=== PATIENT | male | born 1965 | race Caucasian/White ===

== ENCOUNTER 2023-07-30 17:13 | Inpatient (IN) | payer OTHER ==
[2023-07-30 18:07] VITALS: BMI 29.0
[2023-07-30] MEDS ORDERED: ACETAMINOPHEN 325 MG TABLET (FP) PO PRN (19:25)
[2023-07-30] MEDS ORDERED: LOPERAMIDE HCL 2 MG CAPSULE PO PRN (19:25)
[2023-07-30] MEDS ORDERED: BISMUTH SUBSALICYLATE 524 MG/30 ML PO PRN (19:25)
[2023-07-30] MEDS ORDERED: MAGNESIUM HYDROX 2400MG/30ML ORAL SUSPENSION 30 ML CUP PO PRN (19:25)
[2023-07-30] MEDS ORDERED: NALOXONE HCL (KLOXXADO) 8 MG SPRAY NS PRN (19:25)
[2023-07-30] MEDS ORDERED: DICYCLOMINE HCL 10 MG CAPSULE PO PRN (19:25)
[2023-07-30] MEDS ORDERED: MAG HYDROX/AL HYDROX/SIMETH 30 ML UNIT-DOSE CUP PO PRN (19:25)
[2023-07-30] MEDS ORDERED: NALOXONE HCL 0.4 MG/ML VIAL IM PRN (19:25)
[2023-07-30] MEDS ORDERED: guaiFENesin 600 MG TABLET.ER (FP) PO PRN (19:25)
[2023-07-30] MEDS ORDERED: IBUPROFEN 400 MG TABLET (FP) PO PRN (19:25)
[2023-07-30] MEDS ORDERED: BENZOCAINE/MENTHOL (CHLORASEPTIC ) LOZENGE MM PRN (19:25)
[2023-07-30] MEDS ORDERED: NICOTINE POLACRILEX 2 MG LOZENGE BC PRN (19:25)
[2023-07-30] MEDS ORDERED: IBUPROFEN 600 MG TABLET (FP) PO PRN (19:25)
[2023-07-30] MEDS ORDERED: POLYETHYLENE GLYCOL (HEALTHYLAX) 3350 17 GM PACKET PO PRN (19:25)
[2023-07-30] MEDS ORDERED: BENZONATATE 200 MG CAPSULE PO PRN (19:25)
[2023-07-30] MEDS ORDERED: P-EPHED 60MG/TRIPROLIDI 2.5MG TABLET PO PRN (19:25)
[2023-07-30] MEDS: MELATONIN 5 MG TABLETS PO SCH (22:45)
[2023-07-30] MEDS: THIAMINE HCL 100 MG TABLET (FP) PO SCH (22:45)
[2023-07-31] MEDS: hydrOXYzine PAMOATE 25 MG CAPSULE (FP) PO PRN ×2 (05:19→22:41)
[2023-07-31] MEDS: METHOCARBAMOL 500 MG TABLET PO PRN ×2 (05:19→22:41)
[2023-07-31 08:30] LABS: POTASSIUM 4.5 mmol/L (3.5-5.1)
[2023-07-31 08:34] LABS: HEMATOCRIT 36.5 % (35.4-49); HEMOGLOBIN 12.4 GM/dL (11.7-16.9); MCH 31.7 pg (25.7-33.7); MEAN CELL VOLUME 93.2 fl (80-96); MEAN PLT VOLUME 9.4 fl (7.5-11.1); PLATELET COUNT 173 10^3/uL (134-434); RBC 3.92 M/mm3 (4.00-5.60); RDW 13.3 % (11.9-15.9); WHITE BLOOD COUNT 6.7 K/mm3 (4.0-10.0)
[2023-07-31 08:40] LABS: ALBUMIN 3.2 g/dl (3.4-5.0); BLOOD UREA NITROGEN 13.5 mg/dL (7-18); CALCIUM 8.8 mg/dL (8.5-10.1)
[2023-07-31 08:43] LABS: CREATININE 1.2 mg/dL (0.55-1.3)
[2023-07-31 08:45] LABS: TOT PROT 6.8 g/dl (6.4-8.2)
[2023-07-31 08:47] LABS: BILIRUBIN,TOTAL 0.5 mg/dL (0.2-1)
[2023-07-31] MEDS: PRENATAL VITAMINS W/ FOLIC ACID TABLET (FP) PO SCH (10:25)
[2023-07-31] MEDS ORDERED: methaDONE HCL 10 MG TABLET (FOR DETOX USE ONLY) PO ONE (10:59)
[2023-07-31] MEDS ORDERED: FLU VACCINE (FLULAVAL) PF 60 MCG/0.5 ML SYRINGE 2023-2024 IM ONE (12:00)
[2023-07-31 13:08] LABS: HIV INTERPRETATION NEGATIVE (NEGATIVE)
[2023-07-31] MEDS: ONDANSETRON *ODT* 4 MG TABLET SL PRN (20:49)
[2023-07-31] MEDS: cloNIDine HCL 0.1 MG TABLET PO PRN (20:49)
[2023-07-31] MEDS: THIAMINE HCL 100 MG TABLET (FP) PO SCH (22:41)
[2023-07-31] MEDS: MELATONIN 5 MG TABLETS PO SCH (22:41)
[2023-07-31] MEDS ORDERED: TRIMETHOBENZAMIDE HCL 200MG/2ML INJ IM ONE (23:16)
[2023-08-01] MEDS: ONDANSETRON *ODT* 4 MG TABLET SL PRN ×2 (08:56→18:17)
[2023-08-01] MEDS ORDERED: TRIMETHOBENZAMIDE HCL 200MG/2ML INJ IM PRN (09:15)
[2023-08-01] MEDS: PRENATAL VITAMINS W/ FOLIC ACID TABLET (FP) PO SCH (10:30)
[2023-08-01] MEDS: diazePAM 5 MG TABLET PO PRN ×2 (19:17→23:28)
[2023-08-01] MEDS: THIAMINE HCL 100 MG TABLET (FP) PO SCH (22:29)
[2023-08-01] MEDS: MELATONIN 5 MG TABLETS PO SCH (22:29)
[2023-08-01] MEDS: METHOCARBAMOL 500 MG TABLET PO PRN (22:30)
[2023-08-01] MEDS: cloNIDine HCL 0.1 MG TABLET PO PRN (22:30)
[2023-08-02] MEDS ORDERED: methaDONE HCL 10 MG TABLET (FOR DETOX USE ONLY) PO ONE (10:00)
[2023-08-02] MEDS: PRENATAL VITAMINS W/ FOLIC ACID TABLET (FP) PO SCH (10:34)
[2023-08-02] MEDS: diazePAM 5 MG TABLET PO PRN ×2 (14:29→22:21)
[2023-08-02] MEDS: THIAMINE HCL 100 MG TABLET (FP) PO SCH (22:20)
[2023-08-02] MEDS: METHOCARBAMOL 500 MG TABLET PO PRN (22:21)
[2023-08-02] MEDS: MELATONIN 5 MG TABLETS PO SCH (22:21)
[2023-08-03] MEDS: PRENATAL VITAMINS W/ FOLIC ACID TABLET (FP) PO SCH (10:31)
[2023-08-03] MEDS: METHOCARBAMOL 500 MG TABLET PO PRN (10:31)
[2023-08-03] MEDS: THIAMINE HCL 100 MG TABLET (FP) PO SCH (23:02)
[2023-08-03] MEDS: MELATONIN 5 MG TABLETS PO SCH (23:02)
[2023-08-04] MEDS ORDERED: methaDONE HCL 10 MG TABLET (FOR DETOX USE ONLY) PO ONE (10:00)
[2023-08-04] MEDS: PRENATAL VITAMINS W/ FOLIC ACID TABLET (FP) PO SCH (10:33)
[2023-08-04] MEDS: THIAMINE HCL 100 MG TABLET (FP) PO SCH (23:05)
[2023-08-04] MEDS: MELATONIN 5 MG TABLETS PO SCH (23:05)
[2023-08-05 09:54] VITALS: BP 118/75; PULSE 84; RESP 17; TEMP 97.8
== END 2023-08-05 10:25 | disposition other institution (70) | DRG 773 ==
LOC: YASAS 17:13 → Y3N 20:04
PROVIDERS: ADMIT Allergy & Immunology; ATTEND Surgery
PROC: HZ2ZZZZ Detoxification Services for Substance Abuse Treatment (ICD-10-PCS; principal; 2023-07-30)
DX: F11.23 Opioid dependence with withdrawal (principal); F13.120 Sedative, hypnotic or anxiolytic abuse with intoxication, uncomplicated; F17.210 Nicotine dependence, cigarettes, uncomplicated; R26.89 Other abnormalities of gait and mobility; Z86.19 Personal history of other infectious and parasitic diseases
CPT/HCPCS: 0241U-QW; 36415; 80053; 85027; 86780; 87389; 87635; 93005; 93010; Q0162

== ENCOUNTER 2025-04-07 12:08 | Inpatient (IN) | payer OTHER ==
[2025-04-07 12:23] VITALS: BMI 25.0
[2025-04-07] MEDS ORDERED: IBUPROFEN 400 MG TABLET (FP) PO PRN (12:37)
[2025-04-07] MEDS ORDERED: LOPERAMIDE HCL 2 MG CAPSULE PO PRN (12:37)
[2025-04-07] MEDS ORDERED: DICYCLOMINE HCL 10 MG CAPSULE PO PRN (12:37)
[2025-04-07] MEDS ORDERED: ACETAMINOPHEN 325 MG TABLET (FP) PO PRN (12:37)
[2025-04-07] MEDS ORDERED: POLYETHYLENE GLYCOL (HEALTHYLAX) 3350 17 GM PACKET PO PRN (12:37)
[2025-04-07] MEDS ORDERED: NALOXONE (NARCAN) HCL 4 MG/0.1 ML SPRAY NS PRN (12:37)
[2025-04-07] MEDS ORDERED: MAGNESIUM HYDROX 2400MG/30ML ORAL SUSPENSION 30 ML CUP PO PRN (12:37)
[2025-04-07] MEDS ORDERED: BISMUTH SUBSALICYLATE 524 MG/30 ML PO PRN (12:37)
[2025-04-07] MEDS ORDERED: MAG HYDROX/AL HYDROX/SIMETH 30 ML UNIT-DOSE CUP PO PRN (12:37)
[2025-04-07] MEDS ORDERED: BENZOCAINE/MENTHOL (CHLORASEPTIC ) LOZENGE MM PRN (12:37)
[2025-04-07] MEDS ORDERED: IBUPROFEN 600 MG TABLET (FP) PO PRN (12:37)
[2025-04-07] MEDS ORDERED: guaiFENesin 600 MG TABLET.ER (FP) PO PRN (12:37)
[2025-04-07] MEDS ORDERED: METHOCARBAMOL 500 MG TABLET PO PRN (12:37)
[2025-04-07] MEDS ORDERED: NICOTINE POLACRILEX 2 MG GUM BUC PRN (12:37)
[2025-04-07] MEDS ORDERED: BENZONATATE 200 MG CAPSULE PO PRN (12:37)
[2025-04-07] MEDS ORDERED: hydrOXYzine PAMOATE 25 MG CAPSULE (FP) PO PRN (12:37)
[2025-04-07] MEDS ORDERED: ALBUTEROL SO4 HFA INHALER IH PRN (16:15)
[2025-04-07] MEDS: THIAMINE 100 MG TABLET PO SCH (22:35)
[2025-04-07] MEDS: MELATONIN 5 MG TABLETS PO SCH (22:35)
[2025-04-08] MEDS: NICOTINE 14 MG/24 HOURS TOPICAL PATCH TD SCH (09:37)
[2025-04-08] MEDS: PRENATAL VITAMINS W/ FOLIC ACID TABLET (FP) PO SCH (09:37)
[2025-04-08] MEDS: DOCUSATE SODIUM 100 MG CAPSULE (FP) PO SCH (15:57)
[2025-04-08] MEDS: ONDANSETRON *ODT* 4 MG TABLET SL PRN (20:41)
[2025-04-08] MEDS: MELATONIN 5 MG TABLETS PO SCH (22:42)
[2025-04-09 10:04] VITALS: BP 120/71; PULSE 62; RESP 16; TEMP 98.9
[2025-04-09 11:10] LABS: MCHC 32.9 g/dl (32.3-36.5); MEAN CELL VOLUME 93.0 fl (79.0-92.2); MEAN PLT VOLUME 11.3 fl (9.4-12.4); RDW 12.4 % (12.2-16.1)
== END 2025-04-09 11:26 | disposition left against medical advice (07) | DRG 770 ==
LOC: YASAS 12:08 → Y6N 15:05
PROVIDERS: ADMIT Family Medicine; ATTEND Allergy & Immunology
PROC: HZ2ZZZZ Detoxification Services for Substance Abuse Treatment (ICD-10-PCS; principal; 2025-04-07)
DX: F11.23 Opioid dependence with withdrawal (principal); F14.20 Cocaine dependence, uncomplicated; F13.929 Sedative, hypnotic or anxiolytic use, unspecified with intoxication, unspecified; F17.210 Nicotine dependence, cigarettes, uncomplicated; F41.9 Anxiety disorder, unspecified; F32.A Depression, unspecified; Z86.19 Personal history of other infectious and parasitic diseases
CPT/HCPCS: 36415; 83036; 85027; 86780; 93005; 93010; Q0162